=== PATIENT | female | born 1955 | race Caucasian/White ===

== ENCOUNTER → 2021-03-22 | Outpatient (CLI) | payer OTHER ==
[~2021-03-22] MED LIST: ATEN25TA PO; CHLO25CA9 PO; DAPA10TA PO; METF10007 PO; PRED1TAB19 PO; [UNRECOGNIZED DRUG - MIXTURE] PO
[2021-03-22 14:53] LABS: BASOPHILS % (AUTO) 1 % (0-1); EOSINOPHILS % (AUTO) 1 % (1-7); LYMPHOCYTES % (AUTO) 26 % (22-44); MEAN CORPUSCULAR HEMOGLOBIN 32.8 pg (27.0-34.8); MEAN CORPUSCULAR HGB CONC 33.9 g/dL (32.4-35.8); MEAN PLATELET VOLUME 7.9 fL (7.4-10.4); MONOCYTES % (AUTO) 5 % (2-9); NEUTROPHILS % (AUTO) 68 % (42-75); PLATELET COUNT 259 x10^3/uL (130-400); RED BLOOD COUNT 4.66 x10^6/uL (3.82-5.3); RED CELL DISTRIBUTION WIDTH 13.4 % (9.6-15.2)
[2021-03-22 14:57] LABS: ALANINE AMINOTRANSFERASE 44 U/L (12-78); ALBUMIN 4.1 g/dL (3.4-5.0); ANION GAP 5 mmol/L (5-15); CALCIUM 9.5 mg/dL (8.5-10.1); CHLORIDE 104 mmol/L (98-107); CREATININE 0.68 mg/dL (0.55-1.02)
[2021-03-22 14:59] LABS: ALKALINE PHOSPHATASE 130 U/L (45-117); BILIRUBIN,TOTAL 1.1 mg/dL (0.2-1.0); TOTAL PROTEIN 8.2 g/dL (6.4-8.2)
[2021-03-22 15:11] LABS: INTERNATIONAL NORMALIZED RATIO 1.07 (0.93-1.1); PROTHROMBIN TIME 11.4 Seconds (9.6-11.5)
== END | disposition home or self-care (01) ==
LOC: STAR 13:51
PROVIDERS: ATTEND Neurological Surgery
DX: Z01.818 Encounter for other preprocedural examination (principal); M50.00 Cervical disc disorder with myelopathy, unspecified cervical region
CPT/HCPCS: 36415; 71046; 80053; 85025; 85610; 85730; 93005

== ENCOUNTER 2021-03-28 08:15 | Inpatient (IN) | payer OTHER ==
[~2021-03-28] VITALS: Ht 160 cm; Wt 72.3 kg
[~2021-03-28 08:15] MED LIST changes: +BUPIVACAINE/PF 0.5% ONE; +EPINEPHRINE 1 MG/ML, 1ML ONE; +GENTAMICIN 80 MG/2 ML ONE; +VANCOMYCIN 1,000 MG ONE
[2021-03-28 08:48] VITALS: BP 114/75
[2021-03-28] MEDS ORDERED: CHLORHEXIDINE 15 ML UDC PO ONE (09:00)
[2021-03-28] MEDS ORDERED: LACTATED RINGERS 1,000 ML IV SCH (09:00)
[2021-03-28] MEDS ORDERED: THROMBIN 20,000 UNIT VIAL TP ONE (09:13)
[2021-03-28] MEDS ORDERED: MIDAZOLAM 1 MG/ML, 2ML ONE (10:38)
[2021-03-28] MEDS ORDERED: ROCURONIUM 10 MG/ML,10ML ONE (11:50)
[2021-03-28] MEDS ORDERED: DEXAMETHASONE 4 MG/ML, 5ML ONE (11:50)
[2021-03-28] MEDS ORDERED: PROPOFOL 10 MG/ML, 20ML ONE (11:50)
[2021-03-28] MEDS ORDERED: ONDANSETRON 2MG/ML, 2ML ONE (11:50)
[2021-03-28] MEDS ORDERED: SUCCINYLCHOLINE 20 MG/ML, 10ML ONE (11:50)
[2021-03-28] MEDS ORDERED: CEFAZOLIN 1,000 MG ONE (11:50)
[2021-03-28] MEDS ORDERED: FENTANYL PF 250 MCG/5ML ONE (12:42)
[2021-03-28] MEDS ORDERED: MEPERIDINE/PF 25MG/0.5ML IVPush PRN (13:30)
[2021-03-28] MEDS ORDERED: PROMETHAZINE 25 MG/ML, 1ML IV PRN (13:30)
[2021-03-28] MEDS ORDERED: HYDROmorphone 1 MG/ML, 1ML INJ IV PRN (13:30)
[2021-03-28] MEDS ORDERED: hydrALAzine 20 MG/ML, 1ML IV PRN (13:30)
[2021-03-28] MEDS ORDERED: OXYcodone 5 MG/5 ML ORAL.SOL UDC PO PRN (13:30)
[2021-03-28] MEDS ORDERED: KETOROLAC 30 MG/1 ML IV PRN (13:30)
[2021-03-28] MEDS ORDERED: ALBUTEROL SULFATE 2.5 MG/3 ML NPPB PRN (13:30)
[2021-03-28] MEDS ORDERED: METOCLOPRAMIDE 5 MG/ML, 2ML IV PRN (13:30)
[2021-03-28] MEDS ORDERED: LABETALOL 5MG/ML, 20ML IV PRN ×2 (13:30→16:00)
[2021-03-28] MEDS ORDERED: DIAZEPAM 5 MG/ML, 2ML IV PRN ×2 (13:30)
[2021-03-28] MEDS ORDERED: ONDANSETRON 2MG/ML, 2ML IVPush PRN (13:30)
[2021-03-28] MEDS ORDERED: KETOROLAC 30 MG/1 ML ONE (13:42)
[2021-03-28] MEDS ORDERED: FENTANYL PF 100 MCG/2ML ONE (14:00)
[2021-03-28] MEDS: FENTANYL PF 100 MCG/2ML IV PRN ×2 (14:00→14:26)
[2021-03-28] MEDS ORDERED: DIAZEPAM 5 MG/ML, 2ML ONE (14:06)
[2021-03-28] MEDS ORDERED: OXYcodone 5 MG/5 ML ORAL.SOL UDC ONE (14:28)
[2021-03-28 15:28] VITALS: BP 121/72
[2021-03-28] MEDS ORDERED: DIPHENHYDRAMINE 25 MG CAPSULE PO PRN (15:30)
[2021-03-28] MEDS ORDERED: KETOROLAC 30 MG/1 ML IV ONE (15:36)
[2021-03-28] MEDS ORDERED: BISACODYL 10 MG SUPP PR PRN (16:00)
[2021-03-28] MEDS ORDERED: ONDANSETRON 2MG/ML, 2ML IV PRN (16:00)
[2021-03-28] MEDS ORDERED: MAGNESIUM HYDROXIDE 8%, 30ML UDC PO PRN (16:00)
[2021-03-28] MEDS ORDERED: DIPHENHYDRAMINE 50 MG/ML, 1ML IM PRN (16:00)
[2021-03-28] MEDS ORDERED: DIPHENHYDRAMINE 50 MG/ML, 1ML IVPush PRN (16:00)
[2021-03-28] MEDS ORDERED: HYDROcodone/APAP 5/325 TABLET PO PRN (16:00)
[2021-03-28] MEDS ORDERED: PROMETHAZINE 25 MG/ML, 1ML IM PRN (16:00)
[2021-03-28] MEDS: morphine SULFATE 10 MG/ML, 1ML IV PRN ×4 (16:50→23:11)
[2021-03-28] MEDS: NS + 20MEQ KCL 1,000 ML IV SCH (16:55)
[2021-03-28] MEDS: OXYcodone IR 5MG TABLET PO PRN ×3 (17:31→23:41)
[2021-03-28 18:32] VITALS: BP 98/59
[2021-03-28] MEDS: CEFAZOLIN PMX 1GM/50ML 50 ML IVPB SCH (20:13)
[2021-03-28] MEDS: CHLORDIAZEPOXIDE 5 MG CAPSULE PO SCH (20:34)
[2021-03-28] MEDS: METHOCARBAMOL 750 MG in DEXTROSE 5% 100 ML IV SCH (21:49)
[2021-03-28 23:39] VITALS: BP 95/57
[2021-03-29] MEDS: morphine SULFATE 10 MG/ML, 1ML IV PRN (02:19)
[2021-03-29] MEDS: OXYcodone IR 5MG TABLET PO PRN ×3 (03:43→10:14)
[2021-03-29] MEDS: CEFAZOLIN PMX 1GM/50ML 50 ML IVPB SCH (03:43)
[2021-03-29 03:46] VITALS: BP 105/54
[2021-03-29] MEDS: NS + 20MEQ KCL 1,000 ML IV SCH (03:46)
[2021-03-29] MEDS ORDERED: ATENOLOL 25 MG TABLET PO SCH (06:00)
[2021-03-29] MEDS: METHOCARBAMOL 750 MG in DEXTROSE 5% 100 ML IV SCH (06:08)
[2021-03-29 06:25] VITALS: BP 114/58
[2021-03-29] MEDS ORDERED: metFORMIN 500 MG TABLET PO SCH (08:00)
[2021-03-29] MEDS ORDERED: ONDA-89 PO (08:43)
[2021-03-29] MEDS ORDERED: SENN-211 PO (08:43)
[2021-03-29] MEDS ORDERED: OXYC5TAB98 PO (08:43)
[2021-03-29] MEDS ORDERED: METH-640 PO (08:43)
[2021-03-29] MEDS: CHLORDIAZEPOXIDE 5 MG CAPSULE PO SCH (08:46)
[2021-03-29] MEDS ORDERED: DAPAGLIFLOZIN PROPANEDIOL 10 MG HOMEMEDPO SCH (09:00)
[2021-03-29] MEDS ORDERED: SENNA/DOCUSATE TABLET PO SCH (09:00)
[2021-03-29] MEDS ORDERED: [UNRECOGNIZED DRUG - OTHER] HOMEMEDPO SCH (09:00)
[2021-03-30] MEDS ORDERED: METHOCARBAMOL 750 MG TABLET PO SCH (14:00)
== END 2021-03-29 10:45 | disposition home or self-care (01) | DRG 472 ==
LOC: OUT 08:15 → 4NE 15:02 → OUT 15:03 → 4NE 15:11
PROVIDERS: ADMIT Neurological Surgery; ATTEND Neurological Surgery
PROC: 0RB30ZZ Excision of Cervical Vertebral Disc, Open Approach (ICD-10-PCS; 2021-03-28)
PROC: 01N10ZZ Release Cervical Nerve, Open Approach (ICD-10-PCS; 2021-03-28)
PROC: 00NW0ZZ Release Cervical Spinal Cord, Open Approach (ICD-10-PCS; 2021-03-28)
PROC: 4A11X4G Monitoring of Peripheral Nervous Electrical Activity, Intraoperative, External Approach (ICD-10-PCS; 2021-03-28)
PROC: 0RG20A0 Fusion of 2 or more Cervical Vertebral Joints with Interbody Fusion Device, Anterior Approach, Anterior Column, Open Approach (ICD-10-PCS; principal; 2021-03-28 11:30)
DX: M48.02 Spinal stenosis, cervical region (principal); M47.12 Other spondylosis with myelopathy, cervical region; M47.22 Other spondylosis with radiculopathy, cervical region
CPT/HCPCS: 72040; S0020; 82962; 86850; 86900; 95938; 95941; C1713; G0378; J0171; J0690; J1100; J1885; J2250; J2405; J2704; J3010; J3360; J3370; J3480; J7512; C1763; C1889; J0330; J1200; J1580; J2270; J2800; J7120